=== PATIENT | male | born 1975 ===

== ENCOUNTER 2018-07-10 16:55 | Observation (INO) | payer BC, OTHER ==
[2018-07-10 17:00] VITALS: BMI 32.3
--- NOTE | 2018-07-10 17:57 | C.PDOC ---
History Of Present Illness 42 year old male presents to ED with complaint of swelling to his bilateral lower extremities with the left more swollen than the right for the past 2-3 days. Patient states that he went to an urgent care today, which referred him to the ED to rule out DVT. Patient states that he has also been experienced SOB with exertion, cough, and chest pain. He states that the cough causes him more pain and it moves from the right and left sides. He states that he currently takes Prilosec. Patient admits to smoking and drinking socially. He denies vomiting, fever, or diarrhea. Time Seen by Provider: 07/10/18 17:22 Chief Complaint (Nursing): Lower Extremity Problem/Injury History Per: Patient History/Exam Limitations: no limitations Onset/Duration Of Symptoms: Days (2-3) Current Symptoms Are (Timing): Still Present Past Medical History Reviewed: Historical Data, Nursing Documentation, Vital Signs Vital Signs: Last Vital Signs Temp 99.4 F 07/10/18 17:01 Pulse 89 07/10/18 17:01 Resp 18 07/10/18 17:01 BP 147/91 H 07/10/18 17:01 Pulse Ox 96 07/10/18 17:01 Primary Care Provider: Non [facility] Provider, - Medical History PMH: No Chronic Diseases Surgical History: No Surg Hx Family History: States: Unknown Family Hx - Social History Hx Alcohol Use: Yes Hx Substance Use: Yes - Immunization History Hx Tetanus Toxoid Vaccination: No Hx Influenza Vaccination: No Hx Pneumococcal Vaccination: No Review Of Systems Constitutional: Negative for: Fever, Chills, Weakness Cardiovascular: Positive for: Chest Pain. Negative for: Palpitations Respiratory: Positive for: Cough, SOB with Excertion Gastrointestinal: Negative for: Nausea, Vomiting, Abdominal Pain, Diarrhea Musculoskeletal: Positive for: Other (swelling to the bilateral lower extremities with the left more swollen than the right) Physical Exam - Physical Exam Appears: Non-toxic, No Acute Distress Skin: Normal Color, Warm, Dry Head: Atraumatic, Normacephalic Eye(s): bilateral: Normal Inspection (conjunctiva clear), PERRL, EOMI Oral Mucosa: Moist Chest: Symmetrical Cardiovascular: Rhythm Regular, No Murmur Respiratory: No Rales, No Rhonchi, No Wheezing, Other (Good air movement, Lungs CTA bilaterally) Gastrointestinal/Abdominal: Soft, No Tenderness, No Distention, No Guarding, No Rebound Extremity: Calf Tenderness (left calf ), Capillary Refill (<2 seconds), Swelling (+1 edema bilaterally) Extremity: Bilateral: Atraumatic, Normal Color And Temperature, Normal ROM, Other (no cyanosis) Pulses: Left Dorsalis Pedis: Normal, Right Dorsalis Pedis: Normal Neurological/Psych: Oriented x3, Normal Speech, Normal Cognition, Normal Cranial Nerves, Normal Motor, Normal Sensation Gait: Steady ED Course And Treatment - Laboratory Results Result Diagrams: 07/10/18 18:24 07/11/18 12:05 ECG: Interpreted By Me, Viewed By Me ECG Rhythm: Sinus Rhythm Interpretation Of ECG: Normal MD and QRS. Prolong QT Rate From EC O2 Sat by Pulse Oximetry: 96 (in RA) Pulse Ox Interpretation: Normal - Other Rad CXR X-Ray: Viewed By Me Interpretation: IMPRESSION: No acute findings identified. - CT Scan/US CTA Other Rad Studies (CT/US): Read By Radiologist, Radiology Report Reviewed CT/US Interpretation: EXAM: CTA Chest with Intravenous Contrast for Pulmonary Embolism. CLINICAL HISTORY: SOB, B/L Leg swelling. TECHNIQUE: Axial CTA images of the chest with intravenous contrast using a pulmonary embolism protocol. Reconstructed images were created and reviewed. 0.00 mGy-cm. CONTRAST: With; 100MLS VISI 320 was administered without incident. COMPARISON: None provided. FINDINGS: PULMONARY ARTERIES. No evidence of central or segmental pulmonary embolism is seen. AORTA. There is no evidence for aneurysm or dissection of the thoracic aorta. LUNGS. The lungs appear clear. PLEURAL SPACES. No pleural effusion seen. No pneumothorax evident. HEART. Heart size is within normal limits. No pericardial effusion. LYMPH NODES. No lymphadenopathy is evident. BONES. No focal osseous abnormality or acute fracture. UPPER ABDOMEN. Images of the upper abdomen demonstrates marked hepatomegaly. The liver measured 21.5 cm in the midclavicular line. Incidental note is made of a 1.6 x 1.1 cm solid homogeneous mass in the left adrenal gland compatible with a cortical adenoma. IMPRESSION: Unremarkable pulmonary em bolism protocol CTA of the chest. Marked hepatomegaly. 1.6 cm left adrenal cortical adenoma. . Electronically signed on July 10, 2018 9:45:31 PM EDT by: Eddie Blanton M.D., M.B.A., Certified By [employer]. Fellowship Trained MRI and CT Specialist Medical Decision Making Medical Decision Making: Impression: 42 year old male presents to ED with complaint of swelling to his bilateral lower extremities for the past 2-3 days. Initial Plan: EKG CXR venous duplex scan of the left lower extremity CMP D-dimer PTT prothrombin Magnesium troponin B-type natruitic peptide Workup is negative. D-dimer positive. CTA chest to be ordered . No Doppler available today. CTA negative for PE. Given patient's symptoms and medical hx plan is Lovenox and admit for further evaluation and management. Patient agreeable w/POC. 22:07 - Called and spoke with Dr. Lu covering for Dr. Zapata, accepts patient to be admitted to his service. Disposition Counseled Patient/Family Regarding: Studies Performed, Diagnosis - Disposition Disposition: HOSPITALIZED Disposition Time: 22:07 Condition: STABLE - Clinical Impression Clinical Impression: Chest pain, GONZALEZ (dyspnea on exertion), Symptom of leg swelling - Scribe Statement The provider has reviewed the documentation as recorded by the Scribe (Isamar Naranjo) All medical record entries made by the Scribe were at my direction and personally dictated by me. I have reviewed the chart and agree that the record accurately reflects my personal performance of the history, physical exam, medical decision making, and the department course for this patient. I have also personally directed, reviewed, and agree with the discharge instructions and disposition.
--- NOTE | 2018-07-10 17:57 | RAD ---
HISTORY: SOB COMPARISON: Chest x-ray performed 10/16/14 TECHNIQUE: Chest PA and lateral, 2 views FINDINGS: Examination limited by habitus. LUNGS: No focal consolidation. Please note that chest x-ray has limited sensitivity for the detection of pulmonary masses. PLEURA: No significant pleural effusion identified. No definite pneumothorax . CARDIOVASCULAR: Heart size appears within normal limits. No atherosclerotic calcification present. OSSEOUS STRUCTURES: No acute osseous abnormality identified. VISUALIZED UPPER ABDOMEN: Unremarkable. OTHER FINDINGS: None. IMPRESSION: No acute findings identified.
[2018-07-10 18:32] LABS: BASO # 0.1 K/uL (0.0-0.2); BASO % 0.7 % (0.0-2.0); EOS # 0.2 K/uL (0.0-0.7); EOS % 2.1 % (0.0-4.0); HEMOGLOBIN 14.1 g/dL (12.0-18.0); LYMPH # 1.3 K/uL (1.0-4.3); LYMPH % 17.6 % (20.0-40.0); MEAN CELL VOLUME 87.7 fL (80.0-94.0); MEAN CORPUSCULAR HEMOGLOBIN 28.9 pg (27.0-31.0); MEAN CORPUSCULAR HGB CONC 32.9 g/dL (33.0-37.0); MEAN PLATELET VOLUME 8.4 fL (7.2-11.7); MONO # 0.6 K/uL (0.0-0.8); MONO % 8.3 % (0.0-10.0); NEUT # 5.3 K/uL (1.8-7.0); NEUT % 71.3 % (50.0-75.0); NRBC % 0.1 % (0.0-2.0); RBC 4.88 Mil/uL (4.40-5.90); RED CELL DISTRIBUTION WIDTH 15.7 % (11.5-14.5); WHITE BLOOD COUNT 7.4 K/uL (4.8-10.8)
[2018-07-10 18:44] LABS: BLOOD UREA NITROGEN 14 mg/dL (9-20); CALCIUM 9.8 mg/dl (8.6-10.4); GFR NON-AFRICAN AMERICAN > 60
[2018-07-10 18:49] LABS: PARTIAL THROMBOPLASTIN TIME 33.8 SECONDS (21-34)
[2018-07-10] MEDS ORDERED: Albuterol-Ipratrop 3 mg / 0.5 (3 ml) UD INH STA (18:59)
[2018-07-10 19:08] LABS: ALB/GLOB RATIO 1.2 (1.0-2.1); ALBUMIN 4.9 g/dL (3.5-5.0); ALT/SGPT 32 U/L (21-72); AST/SGOT 71 U/L (17-59); B-TYPE NATRIURETIC PEPTIDE 21.1 pg/mL (0-450)
[2018-07-10] MEDS ORDERED: Albuterol-Ipratrop 3 mg / 0.5 (3 ml) UD ONE (19:10)
[2018-07-10] MEDS ORDERED: Iodixanol 320 MG/ML 100 ML BOTTLE IV ONE (20:01)
[2018-07-10] MEDS ORDERED: Enoxaparin 100 mg Syringe SC STA (22:06)
[2018-07-10] MEDS ORDERED: Enoxaparin 100 mg Syringe ONE (22:47)
[2018-07-11] MEDS ORDERED: Albuterol-Ipratrop 3 mg / 0.5 (3 ml) UD INH PRN (06:36)
[2018-07-11] MEDS ORDERED: MethylPREDNISolone 40 mg Vial ONE (06:47)
[2018-07-11] MEDS: MethylPREDNISolone 40 mg Vial IVP SCH ×4 (06:47→21:04)
[2018-07-11 08:08] VITALS: RESP 20
--- NOTE | 2018-07-11 09:07 | CT ---
Date of service: 07/10/2018 PROCEDURE: CT Chest with contrast (Pulmonary Angiogram) HISTORY: Shortness of breath COMPARISON: None available. TECHNIQUE: Axial computed tomography images were obtained of the chest in the pulmonary arterial phase of enhancement. Coronal and sagittal reformatted images were created and reviewed. Radiation dose: Total exam DLP = 650.33 mGy-cm. This CT exam was performed using one or more of the following dose reduction techniques: Automated exposure control, adjustment of the mA and/or kV according to patient size, and/or use of iterative reconstruction technique. FINDINGS: PULMONARY ARTERIES: Unremarkable. No pulmonary embolism. AORTA: No acute findings. No thoracic aortic aneurysm. Aortic atherosclerotic calcification and mural plaque present. Tortuous ectatic aorta. LUNGS: Unremarkable. No nodule, mass or pulmonary consolidation. PLEURAL SPACES: Unremarkable. No effusion or pneumothorax. HEART: Unremarkable. No cardiomegaly. No significant pericardial effusion. Coronary calcifications. LYMPH NODES: No lymphadenopathy. BONES, CHEST WALL: Unremarkable. No fracture or destructive lesion OTHER FINDINGS: Prominent liver with fatty infiltration of the liver. Nodular thickening/ nodule of the left adrenal gland measuring 1.6 centimeters with a Hounsfield unit attenuation of 13, indeterminate. Clinical correlation. Small hiatal hernia. Degenerative changes in the spine. IMPRESSION: Unremarkable CT pulmonary angiogram. No pulmonary embolus. Prominent liver with fatty infiltration. 1.6 centimeter left adrenal indeterminate nodule. Correlation with multiphasic contrast enhanced CT or MR may be helpful for further evaluation if clinically indicated. A preliminary report was generated at 9:45 p.m. on 07/10/[address] Eddie Blanton from [facility].
[2018-07-11] MEDS: Enoxaparin 100 mg Syringe SC SCH ×2 (09:46→22:19)
[2018-07-11 12:56] LABS: BLOOD UREA NITROGEN 13 mg/dL (9-20); CALCIUM 9.9 mg/dl (8.6-10.4); GFR NON-AFRICAN AMERICAN > 60
--- NOTE | 2018-07-11 15:19 | CARD ---
APPROVED REPORT Date of service: 07/10/2018 EKG Measurement Heart [id number] MI [id number] <Conclusion> Normal sinus rhythm Prolonged QT Abnormal ECG
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
[2018-07-12] MEDS: MethylPREDNISolone 40 mg Vial IVP SCH ×2 (06:03→13:06)
[2018-07-12] MEDS: Enoxaparin 100 mg Syringe SC SCH (10:16)
--- NOTE | 2018-07-12 12:00 | VASCLAB ---
Date of service: 07/11/2018 PROCEDURE: Left Lower Extremity Venous Duplex Exam. HISTORY: pain/swelling PRIORS: None. TECHNIQUE: Left common femoral, femoral, popliteal and posterior tibial, peroneal and great saphenous veins were evaluated. Flow was assessed with color Doppler, compressibility, assessment of phasic flow and augmentation response. Report prepared by RADU Staley, RVT FINDINGS: LEFT: 1. Common Femoral Vein: 1.1. Compressibility - Fully compressible: Thrombus - None : Flow - Phasic: Augmentation -Normal: Reflux - None. 2. Femoral Vein: 2.1. Compressibility - Fully compressible: Thrombus - None: Flow - Phasic: Augmentation -Normal: Reflux - None. 3. Popliteal Vein: 3.1. Compressibility - Fully compressible: Thrombus - None: Flow - Phasic: Augmentation -Normal: Reflux - Yes. 4. Posterior Tibial Vein: 4.1. Compressibility - Fully compressible: Thrombus - None: Flow - Phasic: Augmentation -Normal: Reflux - None. 5. Peroneal Vein: 5.1. Compressibility - Fully compressible: Thrombus - None: Flow - Phasic: Augmentation -Normal: Reflux - Yes. 6. Great Saphenous Vein: 6.1. Compressibility - Fully compressible: Thrombus - None: Flow - Phasic: Augmentation - Normal: Reflux - None. OTHER FINDINGS: IMPRESSION: No evidence of deep or superficial vein thrombosis of the left lower extremity with excellent venous flow. Valvular incompetence of the left popliteal and peroneal veins. Normal venous flow noted in the right common femoral vein.
[2018-07-12 15:53] VITALS: BP 148/92; PULSE 76; TEMP 98.7
[2018-07-12 16:15] VITALS: O2SAT 98
--- NOTE | 2018-07-12 17:36 | CARD ---
APPROVED REPORT Date of service: 07/12/2018 EXAM: Two-dimensional and M-mode echocardiogram with Doppler and color Doppler. Other Information Quality : GoodRhythm : INDICATION Dyspnea Peripheral Edema Chest Pain RISK FACTORS Obesity Smoking 2D DIMENSIONS IVSd1.0 (0.7-1.1cm)LVDd5.4 (3.9-5.9cm) PWd0.9 (0.7-1.1cm)LA Ftouap43 (18-58mL) LVDs4.1 (2.5-4.0cm)FS (%) 23.4 % LVEF (%)51.4 (>50%)LVEF (Cisneros's)57.37 % IVC0.00 cm M-Mode DIMENSIONS RVDd2.65 (2.1-3.2cm)Left Atrium (MM)3.97 (2.5-4.0cm) IVSd0.91 (0.7-1.1cm)Aortic Root3.56 (2.2-3.7cm) LVDd6.03 (4.0-5.6cm)Aortic Cusp Exc.2.33 (1.5-2.0cm) PWd0.88 (0.7-1.1cm)FS (%) 28 % LVDs4.36 (2.0-3.8cm)LVEF (%)53 (>50%) Mitral Valve MV E Pwklbxze44.5cm/sMV A Cckcehbr88.6cm/sE/A ratio1.5 TDI Lateral E' Peak V9.97cm/sMedial E' Peak V7.64cm/sE/Lateral E'7.3 E/Medial E'9.5 Tricuspid Valve TR Peak [id number]/sTR Peak [id number] LEFT VENTRICLE The left ventricle is normal size. There is normal left ventricular wall thickness. The left ventricular function is normal. The left ventricular ejection fraction is within the normal range. There is normal LV segmental wall motion. The left ventricular diastolic function is normal. RIGHT VENTRICLE The right ventricle is normal size. ATRIA The left atrium is borderline dilated. The right atrium size is normal. AORTIC VALVE The aortic valve is normal in structure. MITRAL VALVE The mitral valve is normal in structure. TRICUSPID VALVE There is trace tricuspid regurgitation. <Conclusion> Normal LV systolic function. Borderline dilated LA. Trace TR.
== END 2018-07-12 16:44 | disposition home or self-care (01) ==
LOC: C.ER 16:55 → C.9E 22:07 → C.5S 07-11 06:56
PROVIDERS: ADMIT Internal Medicine Critical Care Medicine; ATTEND Internal Medicine Critical Care Medicine
DX: M79.89 Other specified soft tissue disorders (principal); R06.02 Shortness of breath; R07.9 Chest pain, unspecified; R05 Cough; F17.210 Nicotine dependence, cigarettes, uncomplicated
CPT/HCPCS: 36415; 71046; 71275; 80048; 80053; 83735; 83880; 84484; 85025; 85378; 85610; 85730; 93005; 93306; 93971; 96372; 96374; 99285; C9113; G0378; J1650; J2920; J2930; Q9967